=== PATIENT | male | born 1985 | race Hispanic/Latino ===

== ENCOUNTER 2020-07-26 17:31 | Emergency (ER) | payer OTHER ==
[~2020-07-26] VITALS: Ht 175.3 cm; Wt 99.8 kg
[2020-07-26] MEDS ORDERED: SODIUM CHLORIDE FLUSH 10 ML SYR INJ PRN (18:45)
[2020-07-26] MEDS ORDERED: KETOROLAC TROMETHAMINE 30 MG/ML VIAL IV STA (20:27)
[2020-07-26] MEDS ORDERED: KETOROLAC TROMETHAMINE 30 MG/ML VIAL ONE (20:38)
[2020-07-26] MEDS ORDERED: POLYTRIM EYE DR10 ML OU (21:30)
[2020-07-26] MEDS ORDERED: MAALOX MAXIMUM355 ML PO (21:30)
== END 2020-07-26 21:57 | disposition home or self-care (01) ==
LOC: FSED 18:30
DX: K20.90 Esophagitis, unspecified without bleeding (principal); H10.9 Unspecified conjunctivitis; I10 Essential (primary) hypertension; F17.210 Nicotine dependence, cigarettes, uncomplicated
CPT/HCPCS: 71046; 80048; 80076; 82553; 83880; 84484; 85025; 85379; 85610; 93005; 99284; J1885

== ENCOUNTER 2020-08-03 00:36 | Emergency (ER) | payer OTHER ==
[~2020-08-03] VITALS: Ht 172.7 cm; Wt 99.8 kg
[~2020-08-03 00:36] MED LIST: MAALOX MAXIMUM355 ML PO; POLYTRIM EYE DR10 ML OU
[2020-08-03] MEDS ORDERED: LABETALOL HCL 5 MG/ML 20ML VIAL IV STA (00:50)
[2020-08-03] MEDS ORDERED: NITROGLYCERIN 2% OINT 1 GM PKT TOP ONE (01:00)
[2020-08-03] MEDS ORDERED: ONDANSETRON HCL INJ 2MG/ML 2ML 2 MG/ML VIAL IV ONE (01:00)
[2020-08-03] MEDS ORDERED: ACETAMINOPHEN 325 MG TAB PO ONE (01:00)
[2020-08-03] MEDS ORDERED: FAMOTIDINE 20 MG/2 ML VIAL IV ONE ×2 (01:00→01:09)
[2020-08-03] MEDS ORDERED: ACETAMINOPHEN 325 MG TAB ONE (01:08)
[2020-08-03] MEDS ORDERED: LABETALOL HCL 20 ML ONE (01:08)
[2020-08-03] MEDS ORDERED: ONDANSETRON HCL INJ 2MG/ML 2ML 2 MG/ML VIAL ONE (01:08)
[2020-08-03] MEDS ORDERED: NITROGLYCERIN 2% OINT 1 GM PKT ONE (01:09)
[2020-08-03] MEDS ORDERED: SODIUM CHLORIDE 0.9% 1000ML 1,000 ML ONE (01:42)
[2020-08-03] MEDS ORDERED: ATENOLOL50 MG PO (02:19)
[2020-08-03] MEDS ORDERED: ZOFRAN4 MG PO (02:19)
[2020-08-03] MEDS ORDERED: OMEPRAZOLE20 M1 PO (02:19)
[2020-08-03] MEDS ORDERED: PROMETHAZINE 25MG/ NS 50ML (IV) IV PRN (02:30)
[2020-08-03] MEDS ORDERED: DIPHENHYDRAMINE HCL INJ 50 MG/ML VIAL IV PRN (02:30)
[2020-08-03 05:40] VITALS: BP 104/57
== END 2020-08-03 05:40 | disposition home or self-care (01) ==
LOC: FSED 00:51
DX: I16.0 Hypertensive urgency (principal); R42 Dizziness and giddiness; K21.00 Gastro-esophageal reflux disease with esophagitis, without bleeding; R94.31 Abnormal electrocardiogram [ECG] [EKG]; F17.210 Nicotine dependence, cigarettes, uncomplicated
CPT/HCPCS: 70450; 71046; 80053; 82553; 84484; 85025; 93005; 99284; J2405; J3490; J7030

== ENCOUNTER 2020-09-28 18:59 | Emergency (ER) | payer OTHER ==
[~2020-09-28] VITALS: Ht 172.7 cm; Wt 99.8 kg
[~2020-09-28 18:59] MED LIST changes: +ATENOLOL50 MG PO; +OMEPRAZOLE20 M1 PO; +ZOFRAN4 MG PO
[2020-09-28 19:31] LABS: BASOPHILS # (AUTO) 0.1 (0.0-0.1); BASOPHILS % 1.1 % (0.0-1.0); EOSINOPHILS # (AUTO) 0.2 (0.0-0.4); EOSINOPHILS % 1.6 % (0.0-6.0); HEMATOCRIT 47.8 % (38.2-49.6); HEMOGLOBIN 16.5 g/dL (14.0-18.0); LYMPHOCYTES # (AUTO) 2.6 (1.0-3.2); LYMPHOCYTES % 27.6 % (18.0-39.1); MEAN CORPUSCULAR HEMOGLOBIN 29.9 pg (28-32); MEAN CORPUSCULAR HGB CONC 34.5 g/dL (31-35); MEAN CORPUSCULAR VOLUME 86.6 fL (81-99); MONOCYTES # (AUTO) 0.9 (0.2-0.8); MONOCYTES % 10.1 % (4.4-11.3); NEUTROPHILS # (AUTO) 5.5 (2.1-6.9); NEUTROPHILS % 59.2 % (38.7-80.0); PLATELET COUNT 233 x10e3/uL (140-360); RED BLOOD COUNT 5.52 x10e6/uL (4.3-5.7); RED CELL DISTRIBUTION WIDTH 13.1 % (11.7-14.4)
[2020-09-28 19:42] LABS: INR 0.99; PROTHROMBIN TIME 13.7 seconds (11.9-14.5)
[2020-09-28 19:43] LABS: PARTIAL THROMBOPLASTIN TIME 28.2 seconds (23.8-35.5)
[2020-09-28 19:52] LABS: ALANINE AMINOTRANSFERASE 54 IU/L (0-55); ALBUMIN 4.3 g/dL (3.5-5.0); ALBUMIN/GLOBULIN RATIO 1.2 (0.8-2.0); ALKALINE PHOSPHATASE 92 IU/L (40-150); ANION GAP 18.4 mmol/L (8-16); BLOOD UREA NITROGEN 5 mg/dL (7-26); BUN/CREATININE RATIO 7 (6-25); CALCIUM 9.3 mg/dL (8.4-10.2); CARBON DIOXIDE 23 mmol/L (22-29); CHLORIDE 101 mmol/L (98-107); CREATINE KINASE 487 IU/L (30-200); CREATININE, SERUM 0.71 mg/dL (0.72-1.25); EST GLOMERULAR FILTRATION RATE > 60 ML/MIN (60-); GLUCOSE 101 mg/dL (74-118); POTASSIUM 3.4 mmol/L (3.5-5.1); SODIUM 139 mmol/L (136-145)
[2020-09-28] MEDS ORDERED: IOPAMIDOL 370 MG/ML 200 ML INFUS..BTL INJ ONE (20:48)
[2020-09-28] MEDS ORDERED: SODIUM CHLORIDE 0.9% 50ML 50 ML ONE (20:48)
[2020-09-28 23:01] VITALS: BP 141/76
== END 2020-09-28 23:00 | disposition home or self-care (01) ==
LOC: ER 19:30
DX: R07.89 Other chest pain (principal); R00.2 Palpitations; R06.00 Dyspnea, unspecified; R05 Cough; I10 Essential (primary) hypertension; K21.9 Gastro-esophageal reflux disease without esophagitis; K76.0 Fatty (change of) liver, not elsewhere classified; Z20.822 Contact with and (suspected) exposure to COVID-19; F17.210 Nicotine dependence, cigarettes, uncomplicated
CPT/HCPCS: 36415; 71045; 71260; 80053; 82550; 82553; 83880; 84484; 85025; 85379; 85610; 85730; 93005; 99284; Q9967; U0002

== ENCOUNTER 2020-11-06 10:58 | Emergency (ER) | payer OTHER ==
[~2020-11-06] VITALS: Ht 175.3 cm; Wt 96.2 kg
[2020-11-06] MEDS ORDERED: FAMOTIDINE 20 MG TAB PO STA (11:44)
[2020-11-06] MEDS ORDERED: DIPHENHYDRAMINE HCL 25 MG CAP PO STA ×2 (11:44→12:04)
[2020-11-06] MEDS ORDERED: PREDNISONE 20 MG TAB PO STA (11:44)
[2020-11-06] MEDS ORDERED: PREDNISONE 20 MG TAB ONE (12:21)
[2020-11-06] MEDS ORDERED: FAMOTIDINE 20 MG TAB ONE (12:21)
[2020-11-06] MEDS ORDERED: PREDNISONE20 MG PO (12:45)
[2020-11-06] MEDS ORDERED: BENADRYL25 M1 PO (12:45)
[2020-11-06] MEDS ORDERED: PEPCID20 MG PO (12:45)
== END 2020-11-06 13:13 | disposition home or self-care (01) ==
LOC: FSED 11:36
DX: L50.9 Urticaria, unspecified (principal); I10 Essential (primary) hypertension; K21.9 Gastro-esophageal reflux disease without esophagitis; F17.210 Nicotine dependence, cigarettes, uncomplicated
CPT/HCPCS: 99283; J7512